=== PATIENT | female | born 1970 | race Caucasian/White ===

== ENCOUNTER 2016-08-11 18:12 | Emergency (ER) | payer BC ==
[2016-08-11] MEDS ORDERED: HYDROMORPHONE HCL 2 MG/ML 1 ML SOL IV ONE ×2 (18:29→18:30)
[2016-08-11] MEDS ORDERED: ONDANSETRON HCL 4 MG/2 ML SOL IV ONE ×2 (18:29→18:30)
[2016-08-11] MEDS ORDERED: SODIUM CHLORIDE 0.9% FLUSH 10 ML SOL IV PRN (18:30)
[2016-08-11] MEDS ORDERED: HYDROMORPHONE HCL 2 MG/ML 1 ML SOL ONE (18:31)
[2016-08-11] MEDS ORDERED: ONDANSETRON HCL 4 MG/2 ML SOL ONE (18:31)
[2016-08-11 18:41] LABS: BASOPHILS % (AUTO) 1 % (0-3); EOSINOPHILS % (AUTO) 4 % (0-9); HEMATOCRIT 41 % (35-47); MEAN CORPUSCULAR HGB CONC 34.4 gm/dl (32.0-36.0); MEAN CORPUSCULAR VOLUME 85 fL (81-99); MONOCYTES % (AUTO) 8.9 % (0-12); NEUTROPHILS % (AUTO) 43.5 % (37-80)
[2016-08-11 18:55] LABS: CALCIUM 8.4 mg/dl (8.5-10.1); POTASSIUM 3.8 mMol/L (3.5-5.1)
[2016-08-11 19:47] VITALS: BP 132/79; PULSE 60; RESP 16; TEMP 97.6; O2SAT 96
== END 2016-08-11 19:54 | disposition home or self-care (01) ==
LOC: ED 18:12
DX: G44.53 Primary thunderclap headache (principal)
CPT/HCPCS: 99284 ×3; 80053; 85025; J1170; J2405; 70450; 96374; 96375

== ENCOUNTER 2017-05-19 21:40 | Emergency (ER) | payer BC ==
[2017-05-19 21:48] VITALS: RESP 20; TEMP 98.6; O2SAT 99
[2017-05-19 22:11] LABS: BASOPHILS % (AUTO) 1 % (0-3); EOSINOPHILS % (AUTO) 2 % (0-9); HEMATOCRIT 34 % (35-47); MEAN CORPUSCULAR HGB CONC 35.9 gm/dl (32.0-36.0); MEAN CORPUSCULAR VOLUME 86 fL (81-99); MONOCYTES % (AUTO) 7.8 % (0-12); NEUTROPHILS % (AUTO) 53.2 % (37-80)
[2017-05-19 22:24] LABS: ALBUMIN 3.3 gm/dl (3.4-5.0); CALCIUM 7.2 mg/dl (8.5-10.1); POTASSIUM 3.5 mMol/L (3.5-5.1)
[2017-05-19] MEDS ORDERED: CALCIUM CARBONATE 500 MG TAB ONE (22:29)
[2017-05-19] MEDS: LORAZEPAM 0.5 MG TAB PO ONE (22:39)
[2017-05-19] MEDS ORDERED: LORAZEPAM 0.5 MG TAB ONE (22:40)
[2017-05-19] MEDS: CALCIUM CARBONATE 500 MG TAB PO SCH (22:41)
[2017-05-19 22:49] VITALS: BP 142/85; PULSE 70
[2017-05-20] MEDS ORDERED: ALPRAZOLAM 0.25 MG TAB PO SCH (09:00)
== END 2017-05-19 22:48 | disposition home or self-care (01) ==
LOC: ED 21:40
DX: E83.51 Hypocalcemia (principal); Z98.890 Other specified postprocedural states
CPT/HCPCS: 36415; 80053; 85025; 93005; 99282; 99283

== ENCOUNTER 2017-11-03 12:21 | Emergency (ER) | payer BC ==
[2017-11-03] MEDS ORDERED: DIAZEPAM 5 MG TAB PO ONE (12:38)
[2017-11-03] MEDS ORDERED: PROMETHAZINE HYDROCHLORIDE 25 MG/ML SOL IM ONE (12:39)
[2017-11-03 12:56] LABS: BASOPHILS % (AUTO) 1 % (0-3); EOSINOPHILS % (AUTO) 2 % (0-9); HEMATOCRIT 42 % (35-47); HEMOGLOBIN 14.4 gm/dl (12.0-15.5); LYMPHOCYTES % (AUTO) 27.3 % (10-50); MEAN CORPUSCULAR HEMOGLOBIN 29.6 pg (27.0-32.0); MEAN CORPUSCULAR HGB CONC 34.3 gm/dl (32.0-36.0); MEAN CORPUSCULAR VOLUME 86 fL (81-99); MONOCYTES % (AUTO) 8.7 % (0-12); NEUTROPHILS % (AUTO) 61.2 % (37-80)
[2017-11-03 12:58] VITALS: TEMP 98.3
[2017-11-03] MEDS ORDERED: DIAZEPAM 5 MG TAB ONE (13:08)
[2017-11-03 13:12] LABS: BLOOD UREA NITROGEN 9 mg/dl (7-18); CALCIUM 8.2 mg/dl (8.5-10.1); CARBON DIOXIDE 31.3 mEq/L (21-32); CHLORIDE 99 mMol/L (98-107); CREATININE 0.85 mg/dl (0.60-1.00); GLOM FILT RATE 71 mL/min (>60); GLUCOSE 102 mg/dl (74-106); SODIUM 137 mMol/L (136-145); TROP I < 0.017 ng/ml (0.000-0.056)
[2017-11-03 13:34] VITALS: BP 148/76; PULSE 73; RESP 18; O2SAT 99
== END 2017-11-03 14:00 | disposition home or self-care (01) ==
LOC: ED 12:21
DX: I49.9 Cardiac arrhythmia, unspecified (principal); R42 Dizziness and giddiness; I45.2 Bifascicular block
CPT/HCPCS: 36415; 80048; 84484; 85025; 93005; 99283; A9270-GY

== ENCOUNTER 2018-07-31 21:42 | Emergency (ER) | payer BC, OTHER ==
[2018-07-31 22:03] VITALS: RESP 16; TEMP 97
[2018-07-31] MEDS ORDERED: MORPHINE SULFATE 10 MG/ML SOL IV ONE (22:17)
[2018-07-31] MEDS ORDERED: ONDANSETRON HCL 4 MG/2 ML SOL IV ONE (22:18)
[2018-07-31] MEDS ORDERED: ONDANSETRON HCL 4 MG/2 ML SOL ONE (22:22)
[2018-07-31] MEDS ORDERED: MORPHINE SULFATE 10 MG/ML SOL ONE (22:22)
[2018-07-31] MEDS: SODIUM CHLORIDE 0.9% 1000ML 1,000 ML IV SCH ×2 (22:30→23:31)
[2018-07-31 22:37] LABS: BASOPHILS % (AUTO) 0 % (0-3); EOSINOPHILS % (AUTO) 2 % (0-9); HEMATOCRIT 48 % (35-47); HEMOGLOBIN 15.4 gm/dl (12.0-15.5); LYMPHOCYTES % (AUTO) 10.4 % (10-50); MEAN CORPUSCULAR HEMOGLOBIN 28.3 pg (27.0-32.0); MEAN CORPUSCULAR HGB CONC 32.5 gm/dl (32.0-36.0); MEAN CORPUSCULAR VOLUME 87 fL (81-99); MONOCYTES % (AUTO) 5.8 % (0-12); NEUTROPHILS % (AUTO) 81.8 % (37-80)
[2018-07-31 22:50] LABS: ALBUMIN 4.1 gm/dl (3.4-5.0); BILIRUBIN,TOTAL 0.5 mg/dl (0.2-1.0); CALCIUM 8.9 mg/dl (8.5-10.1); CREATININE 1.3 mg/dl (0.60-1.00); POTASSIUM 3.7 mMol/L (3.5-5.1); TOTAL PROTEIN 7.6 gm/dl (6.4-8.2)
[2018-07-31] MEDS ORDERED: APAP/HYDROCODONE 1 EACH TABLET PO ONE (22:58)
[2018-07-31] MEDS ORDERED: APAP/HYDROCODONE 1 EACH TABLET ONE (23:03)
[2018-07-31 23:55] VITALS: BP 91/39; PULSE 59; O2SAT 100
== END 2018-07-31 23:46 | disposition home or self-care (01) | DRG 761 ==
LOC: ED 21:42
DX: N83.202 Unspecified ovarian cyst, left side (principal); N83.201 Unspecified ovarian cyst, right side
CPT/HCPCS: 36415; 80053; 85025; 96365; 96374; 96375; 99283; 99284; J2270; J2405; A9270-GY